=== PATIENT | male | born 1960 | race Caucasian/White ===

== ENCOUNTER → 2020-04-26 11:21 | Outpatient (CLI) | payer BC, SELFPAY ==
--- NOTE | 2020-04-26 11:22 | CA_ITS ---
APPROVED REPORT EXAM: Comprehensive 2D, Doppler, and color-flow Echocardiogram Participant Administrator: Princess Dunn CRT Ht: 5 ft 11 in Wt: 251lbs BSA: 2.32 BP: 130/70 mmHg Indications: Diabetes, CAD, Hyperlipidemia, Hypertension/HDD 2D Dimensions LVOT 1.79 cm (M/F) 1.5-2.5 M-Mode Dimensions RVDd 2.46 cm (0.9-2.6) LVDd 6.69 cm (3.5-5.7) LVDs 5.17 cm (3.5-5.7) IVSd 2.20 cm (0.6-1.1) PWd 0.93 cm (0.6-1.1) EF (Teich) 44.60% FS 22.70% EDV (Teich) 230.60 mL ESV (Teich) 127.80 mL Left Ventricle Left atrium is mildly enlarged, left ventricle is normal size, mild concentric left ventricular hypertrophy, visually estimated ejection fraction 55% with no regional wall motion abnormality, grade 1 diastolic dysfunction seen without tissue Doppler evidence of raise left atrial pressure. With no regional wall motion abnormality, grade 1 diastolic dysfunction seen without tissue Doppler evidence of raise left atrial pressure. Right Ventricle Right atrium and right ventricle are normal size and contractility. Aortic Valve Aortic valve is minimally thickened and calcified, there is no aortic stenosis or aortic insufficiency. Mitral Valve Mitral valve is grossly normal, there is mild mitral regurgitation. Tricuspid Valve Tricuspid valve is grossly normal, there is mild tricuspid regurgitation, tricuspid regurgitation jet velocity is inadequate for calculation of the right ventricular systolic pressure. Pulmonic Valve Pulmonic valve is poorly visualized. Great Vessels Aortic root is normal size. Pericardium No significant pericardial effusion noted. Conclusion 1. Mildly enlarged left atrium, normal left ventricular size, mild concentric left ventricular hypertrophy, visually estimated ejection fraction 55% with no regional wall motion abnormality, grade 1 diastolic dysfunction seen without tissue Doppler evidence of raise left atrial pressure. 2. Mild mitral and tricuspid regurgitation. 3. No significant pericardial effusion noted. Electronically signed by : Shawn Paez, 04/26/2020 19:06:36
== END ==
PROVIDERS: PCP Internal Medicine; Visit Provider Urology
DX: E11.9 Type 2 diabetes mellitus without complications (principal); I11.9 Hypertensive heart disease without heart failure; I25.10 Atherosclerotic heart disease of native coronary artery without angina pectoris; Z79.84 Long term (current) use of oral hypoglycemic drugs
CPT/HCPCS: 93306

== ENCOUNTER → 2021-03-28 06:16 | Outpatient (CLI) | payer BC, SELFPAY ==
--- NOTE | 2021-03-28 06:18 | NM_ITS ---
APPROVED REPORT Exam: Nuclear Stress Test Indication: Abnormal EKG, CAD, Hx of IN, HTN, DM, High cholesterol, Family history Patient Location: Outpatient Stress Tech: Kami Perez MI Tech:Sonal Chavez, ARRT, RT (R)(N) Ht: 5 ft 11 in Wt: 248 lbs HR: 71 bpm BP: 132/68 mmHg BSA: 2.31 m2 BMI: 34.5 Procedure: Patient received a 0.4 mg of intravenous Lexiscan, resting heart rate 71 bpm, resting blood pressure 132/68 mmHg, with Lexiscan maximum heart rate achived was 92 bpm which is % of the maximum predicted heart rate and blood pressure was 160/67 mmHg. With Lexiscan, patient denied any complaint of chest pain. Cardiac Stress and Resting SPECT Images: Cardiac Stress and Resting SPECT images were obtained using technetium 99m Myoview 31.2 mCi stress and 10.65 mCi at rest. Patient was unable to do prone images due to not being able to breathe and hold still while laying like that. Ejection fraction at 56% Normal wall motion. No fixed or reversible defects. Conclusion: Ejection Fraction: 56% No evidence of ischemia Electronically signed by : Nate Schmidt MD 03/30/2021 13:59:22
--- NOTE | 2021-03-28 06:18 | CA_ITS ---
APPROVED REPORT Exam: Pharmacologic Technologist: david leyva, Ht: 5 ft 11 in Wt: 248 lbs BSA: 2.31 m2 HR: 71 bpm BP: 132/68 mmHg Indications: Abn EKG Medical History Medications: Lisinopril,,,,, Asa,,,,, Metformin,,,,, Carvedilol,,,,, Pioglitazone,,,,, Lipitor,,,,, Plavix,,,,, Multivitamin,,,,, DulaGLUTIDE,,,,, EMpagliflozin,,,,, Allergies: NKA Cardiac Risk Factors: HTN, Hyperlipidemia, Diabetes (non-insulin), FHX of CAD Stress Test Details Test: LEXISCAN HR Resting HR: 72 bpm Max Heart Rate (APMHR): 158.302042 bpm Max HR Achieved: 92 bpm Target HR (85% APMHR): 134.474493 bpm % of APMHR: 58.23 Recovery HR: 73 bpm BP Resting BP: 132/68 mmHg Max BP: 160/67 mmHg Recovery BP: 128.0/66.0 mmHg ECG Clinical Exercise duration: 04:10 min Highest Stage Achieved: Exercise capacity: 1.0 METs Stress ECG Conclusion No chest pain. SOA with peak infusion subsided during recovery. No ectopy or arhhythmia. Less than 1.5mm ST segment changes. Images to follow. Electronically signed by : Artemio Og, 04/01/2021 12:49:54
--- NOTE | 2021-03-28 08:19 | HMH.ITSHM ---
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 []PIOGLITAZONE MULTIVITAMIN METFORMIN LISINOPRIL ASA EMPAGLIFLOZIN DULAGLUTIDE CLOPIDOGREL CARVEDILOL ATORVASTATIN
== END ==
PROVIDERS: PCP Internal Medicine; Visit Provider Physician Assistant
DX: I50.32 Chronic diastolic (congestive) heart failure (principal); R94.31 Abnormal electrocardiogram [ECG] [EKG]; I11.9 Hypertensive heart disease without heart failure; I25.10 Atherosclerotic heart disease of native coronary artery without angina pectoris; E11.9 Type 2 diabetes mellitus without complications; E66.09 Other obesity due to excess calories; E78.2 Mixed hyperlipidemia; Z79.84 Long term (current) use of oral hypoglycemic drugs; Z68.33 Body mass index [BMI] 33.0-33.9, adult
CPT/HCPCS: 78452; 93017; A9502; J2785